=== PATIENT | male | born 1990 | race Caucasian/White ===

== ENCOUNTER 2017-08-26 11:49 | Emergency (ER) | payer BC, SELFPAY ==
[2017-08-26 12:11] VITALS: BP 122/75; PULSE 96; RESP 20; TEMP 36.6; O2SAT 100; BMI 26.5
--- NOTE | 2017-08-26 12:17 | HMH.EDUTC ---
[facility] [place] Impression: Exposure to the flu Disposition: Home, Self-Care Condition on Discharge: Good Instructions: Influenza Additional Instructions: Medications as ordered Follow-up with primary care this week if symptoms arise If symptoms return or be seen in the ER Prescriptions: Oseltamivir Phosphate [Tamiflu 75mg Capsule] 75 mg PO DAILY 10 Days #10 cap Time of Disposition: 12:24 Medical Decision Making Vital Signs: 08/26/17 12:11 Temperature 97.9 F Temperature Source Temporal Artery Scan Pulse Rate [Left Brachial] 96 H Respiratory Rate 20 Blood Pressure [Left Arm] 122/75 Blood Pressure Mean [Left Arm] 90 Blood Pressure Source [Left Arm] Automatic Cuff Blood Pressure Position [Left Arm] Sitting 02 Sat by Pulse Oximetry 100 Oxygen Delivery Method Room Air - Nick Inquiry Pt receiving controlled substance: No [facility] [place] - General Chief complaint: Urgent Treatment Center Stated complaint: Possible Flu Time Seen by Provider: 08/26/17 12:18 Mode of Arrival: Ambulatory Source of Information: Patient Limitations: No Limitations Description of Symptoms (Recalled from Triage Doc. by RN): REQUESTS FLU TEST HEENT Symptoms (Recalled from RN notes): No Resp Symptoms (Recalled from RN notes): Yes (REQUESTS FLU TEST) Skin Symptoms (Recalled from RN notes): No MS Symptoms (Recalled from RN notes): No Functional Status (Recalled from RN notes): N/A - History of Present Illness Provider Complaint: 27-year-old male presents today to be checked for the flu. Patient's daughter was just diagnosed with flu a and would like Tamiflu - Related Data Previous Rx's Medication Instructions Recorded Oseltamivir Phosphate [Tamiflu 75 mg PO DAILY 10 Days #10 cap 08/26/17 75mg Capsule] Allergies Allergy/AdvReac Type Severity Reaction Status Date / Time No Known Allergies Allergy Verified 08/26/17 12:17 - Worker's Comp Is this a Worker's Comp case?: No [facility] History I have reviewed the patient's past medical history: Yes Medical History: Denies:: Cancer, Diabetes Mellitus Type 1, Diabetes Mellitus Type 2, MRSA Amputation: No Fractures: No - Social History Smoking Status: Never smoker Alcohol Intake: never - Psychiatric History Expresses thoughts of harming self/others: None Suicide Plan Description: No Plan ROS Obtained: Yes All systems reviewed & no additional complaints - Constitutional Constitutional: Reports system reviewed and no additional complaints, except as docu - Eyes Eyes: Reports system reviewed and no additional complaints, except as docu - ENT Ears, Nose, Mouth, and Throat: Reports system reviewed and no additional complaints, except as docu - Cardiovascular Cardiovascular: Reports system reviewed and no additional complaints, except as docu - Respiratory Respiratory: Yes system reviewed and no additional complaints, except as docu - Gastrointestinal Gastrointestingal: Reports: system reviewed and no additional complaints, except as docu - Musculoskeletal Musculoskeletal: Reports system reviewed and no additional complaints, except as docu - Integumentary/Breasts Skin/Breast: Reports system reviewed and no additional complaints, except as docu - Neurologic Neurologic: Reports system reviewed and no additional complaints, except as docu - Endocrine Endocrine: Reports system reviewed and no additional complaints, except as docu - Hematologic/Lymphatic Henatologic/Lymphatic: Reports system reviewed and no additional complaints, except as docu - Allergic/Immunologic Allergic/Immunologic: Reports system reviewed and no additional complaints, except as docu Physical Exam - General General appearance: alert, in no apparent distress - Head Head exam: atraumatic, normocephalic, normal inspection - Eye Eye exam: Present: normal appearance, PERRL, EOMI - ENT ENT exam: Present: normal exam, mucous membranes moist, normal external ear ex
--- NOTE | 2017-08-26 12:21 | ED_ITS ---
[facility] [place] Clinical Impression: Exposure to the flu Disposition: Home, Self-Care Condition on Discharge: Good Instructions: Influenza Additional Instructions: Medications as ordered Follow-up with primary care this week if symptoms arise If symptoms return or be seen in the ER Prescriptions: Oseltamivir Phosphate [Tamiflu 75mg Capsule] 75 mg PO DAILY 10 Days #10 cap Time of Disposition: 12:24 Medical Decision Making Vital Signs: 08/26/17 12:11 Temperature 97.9 F Temperature Source Temporal Artery Scan Pulse Rate [Left Brachial] 96 H Respiratory Rate 20 Blood Pressure [Left Arm] 122/75 Blood Pressure Mean [Left Arm] 90 Blood Pressure Source [Left Arm] Automatic Cuff Blood Pressure Position [Left Arm] Sitting 02 Sat by Pulse Oximetry 100 Oxygen Delivery Method Room Air - Nick Inquiry Pt receiving controlled substance: No [facility] [place] - General Chief complaint: Urgent Treatment Center Stated complaint: Possible Flu Time Seen by Provider: 08/26/17 12:18 Mode of Arrival: Ambulatory Source of Information: Patient Limitations: No Limitations Description of Symptoms (Recalled from Triage Doc. by RN): REQUESTS FLU TEST HEENT Symptoms (Recalled from RN notes): No Resp Symptoms (Recalled from RN notes): Yes (REQUESTS FLU TEST) Skin Symptoms (Recalled from RN notes): No MS Symptoms (Recalled from RN notes): No Functional Status (Recalled from RN notes): N/A - History of Present Illness Provider Complaint: 27-year-old male presents today to be checked for the flu. Patient's daughter was just diagnosed with flu a and would like Tamiflu - Related Data Previous Rx's Medication Instructions Recorded Oseltamivir Phosphate [Tamiflu 75 mg PO DAILY 10 Days #10 cap 08/26/17 75mg Capsule] Allergies Allergy/AdvReac Type Severity Reaction Status Date / Time No Known Allergies Allergy Verified 08/26/17 12:17 - Worker's Comp Is this a Worker's Comp case?: No [facility] History I have reviewed the patient's past medical history: Yes Medical History: Denies:: Cancer, Diabetes Mellitus Type 1, Diabetes Mellitus Type 2, MRSA Amputation: No Fractures: No - Social History Smoking Status: Never smoker Alcohol Intake: never - Psychiatric History Expresses thoughts of harming self/others: None Suicide Plan Description: No Plan ROS Obtained: Yes All systems reviewed & no additional complaints - Constitutional Constitutional: Reports system reviewed and no additional complaints, except as docu - Eyes Eyes: Reports system reviewed and no additional complaints, except as docu - ENT Ears, Nose, Mouth, and Throat: Reports system reviewed and no additional complaints, except as docu - Cardiovascular Cardiovascular: Reports system reviewed and no additional complaints, except as docu - Respiratory Respiratory: Yes system reviewed and no additional complaints, except as docu - Gastrointestinal Gastrointestingal: Reports: system reviewed and no additional complaints, except as docu - Musculoskeletal Musculoskeletal: Reports system reviewed and no additional complaints, except as docu - Integumentary/Breasts Skin/Breast: Reports system reviewed and no additional complaints, except as docu - Neurologic Neurologic: Reports system reviewed and no additional complain
[2017-08-26 12:38] VITALS: BP 122/75; PULSE 96; RESP 20; TEMP 36.6; O2SAT 100
[2017-08-26 12:45] LABS: UTC Influenza A Antigen Negative (Negative); UTC Influenza B Antigen Negative (Negative)
== END 2017-08-26 12:39 | disposition home or self-care (01) ==
PROVIDERS: Emergency Provider Nurse Practitioner Family
DX: Z20.828 Contact with and (suspected) exposure to other viral communicable diseases (principal)
CPT/HCPCS: 87804; 99202

== ENCOUNTER 2024-07-04 10:04 | Emergency (ER) | payer BC, SELFPAY ==
[2024-07-04 10:06] VITALS: BP 178/88; PULSE 99; RESP 18; TEMP 36.7; O2SAT 99; BMI 27.3
[2024-07-04 10:07] VITALS: BP 178/88; PULSE 105; O2SAT 98
--- NOTE | 2024-07-04 10:07 | ECG_ITS ---
APPROVED REPORT Exam: Resting ECG HR:104 bpm ECG Measurements Heart Rate 104 AXES NC 150 P 43 QRSd 102 QRS 60 QT 327 T 36 QTc 387 Conclusion SINUS TACHYCARDIA ABNORMAL RHYTHM ECG UNCONFIRMED REPORT Electronically signed by : Bradley Razo, 07/04/2024 15:34:43
[2024-07-04 10:24] LABS: Basophils % 0.8 % (0.1-2.0); Eosinophils # 0.1 K/mm3 (0.0-0.4); Eosinophils % 2.9 % (0.1-12.0); Hematocrit 47.4 % (42.0-52.0); Hemoglobin 16.9 g/dL (14.1-18.0); Lymphocytes # 1.7 K/mm3 (0.7-4.5); Lymphocytes % 34.2 % (10-50); Mean Corpuscular HGB Conc 35.7 g/dL (31.8-35.4); Mean Corpuscular Hemoglobin 30.7 pg (27.0-31.2); Mean Corpuscular Volume 86.2 fl (80-94); Mean Platelet Volume 8.6 fl (7.4-10.4); Monocytes # 0.4 K/mm3 (0.1-1.0); Monocytes % 7.1 % (1.7-9.3); Neutrophils # 2.7 K/mm3 (1.8-7.8); Neutrophils % 54.8 % (37.0-80.0); Platelet Count 244 K/mm3 (142-424); Red Cell Distribution Width 11.4 % (11.5-17.5); White Blood Count 4.9 K/mm3 (4.8-10.8)
[2024-07-04 10:29] LABS: Alanine Aminotransferase 60 U/L (12-78); Albumin Level 5.2 g/dl (3.5-5.0); Alkaline Phosphatase 90 U/L (38-126); Anion Gap 11.7 mEq/L (5-15); Aspartate Amino Transferase 51 U/L (17-59); Bilirubin,Total 1.2 mg/dl (0.2-1.3); Blood Urea Nitrogen 16 mg/dl (9-20); Carbon Dioxide 29 mmol/L (22.0-30.0); Chloride 101 mmol/L (98-107); Creatinine Clearance Estimated 105 mL/min (50-200); Estimated Glomerular Filt Rate 70 ml/min (>60); GFR (African American) 85 ML/MIN (>60); Globulin 2.6 g/dL (1.3-3.2); Glucose 104 mg/dl (74-100); Potassium 3.7 mmoL/L (3.5-5.1); Sodium 138 mmol/L (136-145); Total Protein,Serum 7.8 g/dl (6.3-8.2)
[2024-07-04 10:46] LABS: Troponin I < 0.01 ng/ml (0.00-0.034)
--- NOTE | 2024-07-04 11:05 | PC.NURSE ---
DR KRAUSE AT BEDSIDE TO UPDATE PT
--- NOTE | 2024-07-04 11:11 | XR_ITS ---
FINAL REPORT CLINICAL HISTORY: chest pain intermittent 2 weeks FINDINGS: A portable view of the chest was obtained. Cardiac and mediastinal silhouettes are within normal limits. The lungs are clear. There is no pleural effusion or pneumothorax. IMPRESSION: No acute process on this portable exam. Reviewed, Interpreted and Dictated by Arlet Buckley MD Transcribed by Precious Potter Authenticated and [facility]
--- NOTE | 2024-07-04 11:13 | ED_ITS ---
Discharge Plan Disposition Patient Disposition: Home, Self-Care Prescriptions Prescriptions: No Action oseltamivir 75 MG capsule 75 mg PO DAILY 10 Days Qty: 10 0RF Activity Restrictions/Add. Instructions Additional Instructions/Restrictions: No evidence of an acute cardiopulmonary emergency today. No indication for any specialty referral. You may take Tylenol and ibuprofen as needed for your symptoms and return to the significant worsening of your symptoms Clinical Impressions Clinical Impression: Atypical chest pain Print Language Print Language: [place] Discharge ED Provider: Emilee Razo [facility] General Chief Complaint: Chest Pain Stated Complaint: chest pain Time Seen by Provider: 07/04/24 11:02 Mode of Arrival: Ambulatory Source of Information: Patient Limitations: No Limitations Description of Symptoms (Recalled from ER Triage Doc. by RN): chest Zaps intermiddent for 2 weeks. anxious. History of Present Illness HPI narrative: 34-year-old presents today with left superior lateral chest discomfort that is been intermittently radiating to his neck. No neurologic symptoms in his left upper extremity such as numbness weakness tingling changes in sensation etc. No exertional symptoms no shortness of breath. Patient states alcohol makes this feel better. No history of any cardiopulmonary disease in the past. This has not gotten any better or worse with any type of food or position etc. No family history of anything significant. He states he has been increasing lifting recently and been lifting to failure which is a new workout regimen for him which he thinks may be contributory. r Related Data Previous Rx's ?Medication ?Instructions ?Recorded oseltamivir 75 mg capsule 75 mg PO DAILY 10 days #10 caps 08/26/17 Allergies Allergy/AdvReac Type Severity Reaction Status Date / Time No Known Allergies Allergy Verified 06/07/18 19:29 [facility] Disclaimer: The information contained in this section may have been updated after the patient was seen, as this information can be updated by other users. Social History Smoking Status: Never smoker alcohol intake: never substance use type: denies use current occupational status: employed Travel in the last 8 weeks: None household members: family housing: house ROS Obtained: Yes All systems reviewed & no additional complaints except as documented Physical Exam General General appearance: alert Chest Chest inspection: Present normal inspection; Absent tenderness Respiratory Respiratory exam: Present normal lung sounds bilaterally and respiratory distress Cardiovascular Cardiovascular exam: Present regular rate and normal rhythm Neurological Exam Neurological exam: Present alert and oriented X3 HEART Score HEART Score HEART Score assessment performed?: Yes History (anamnesis): Slightly suspicious ECG: Normal Age: <45 years Risk factors: No known risk factors Troponin: </= normal limit HEART Score: 0 Critical Care Critical Care Time Critical Care Time: No Medical Decision Making Nick Inquiry Pt receiving controlled substance: No Vital Signs Vital Signs: 07/04/24 10:06 07/04/24 10:07 Temperature 98.1 F Temperature Source Oral Pulse Rate 105 H Pulse Rate [Right] 99 H Respiratory Rate 18 Blood Pressure 178/88 H Blood Pressure [Right Arm] 178/88 H Blood Pressure Mean [Right Arm] 118 02 Sat by Pulse Oximetry 99 98 Oxygen Delivery Method Room Air Lab Data Lab results reviewed: Yes I reviewed the patient's lab results. Labs: Lab Results 07/04/24 10:15: WBC 4.9, RBC 5.50, Hgb 16.9, Hct 47.4, MCV 86.2, MCH 30.7, MCHC 35.7 H, RDW 11.4 L, Plt Count 244, MPV 8.6, Neut % (Auto) 54.8, Lymph % (Auto) 34.2, [place] % (Auto) 7.1, Eos % (Auto) 2.9, Baso % (Auto) 0.8, Neut # (Auto) 2.7, Lymph # (Auto) 1.7, [place] # (Auto) 0.4, Eos # (Auto) 0.1, Baso # (Auto) 0.0, Sodium 138, Potassium 3.7, Chloride 101, Carbon Dioxide 29, Anion Gap 11.7, BUN 16, Creatinine 1.20, Estimated Creat Clear 105, Estimated GFR 70, Est GFR ( Amer) 85, Glucose 104 H, Calcium 10.0, Total Bilirubin 1.2, AST 51, ALT 60, Alkaline Phosphatase 90, Troponin I < 0.01, Total Protein 7.8, Albumin 5.2 H , Globulin 2.6, Albumin/Globulin Ratio 2.0 H 07/04/24 10:15 07/04/24 10:15 Response Orders (Tests/Meds): ORDERS Category Date Time Status Portable CXR [XR chest portable] Stat Exams 07/04/24 11:11 Taken Complete Blood Count Auto Diff Stat Lab 07/04/24 10:15 Completed Comprehensive Metabolic Panel Stat Lab 07/04/24 10:15 Completed HIV Combo Stat Lab 07/04/24 10:15 Received Hep C Ab with Reflex to RNA Stat Lab 07/04/24 10:15 Received Troponin I Q3H Lab 07/04/24 13:30 Ordered Troponin I Q3H Lab 07/04/24 16:30 Ordered Troponin I Stat Lab 07/04/24 10:15 Completed ECG Data Tracing #1: Attestation: I reviewed this ECG and interpreted as documented below: ECG Narrative: Ventricular rate of 104 sinus tachycardia normal conduction no conduction abnormalities normal axis MDM Narrative Medical Decision Narrative: 34-year-old with above history and physical very benign appearance normal exam EKG unremarkable troponin undetectably low. Has had symptoms for several weeks this is not consistent with myocardial involvement of any sort. Heart rate was 65 on my exam he is initially tachycardic but that is likely secondary to his anxiety he is otherwise PERC negative no workup needed for pulmonary embolism. Chest x-ray performed which I personally interpreted which shows no acute cardiopulmonary emergency specifically no pneumothorax or other acute cause of his chest pain. Patient was reassured and felt very good on this he asked for a printout of his labs which we showed and we emphasized the troponin to him. He was discharged in stable condition.
[2024-07-04 11:23] VITALS: BP 118/73; PULSE 73; RESP 18; TEMP 36.9; O2SAT 97
[2024-07-04 13:36] LABS: HIV Combo NEGATIVE (Negative)
[2024-07-05 06:18] LABS: HCV Ab Non Reactive (Non Reactive)
== END 2024-07-04 11:25 | disposition home or self-care (01) ==
PROVIDERS: Emergency Provider Student in an Organized Health Care Education/Training Program; PCP Nurse Practitioner Family
DX: R07.89 Other chest pain (principal); R07.9 Chest pain, unspecified
CPT/HCPCS: 71045; 80053; 84484; 85025; 86803; 87389; 93005; 99284